=== PATIENT | male | born 1990 | race Caucasian/White ===

== ENCOUNTER 2023-10-20 15:43 | Emergency (ER) | payer OTHER, SELFPAY ==
--- NOTE | ~2023-10-20 | CT_ITS ---
EXAMINATION: CT lumbar spine wo con DATE: 10/20/2023 16:44 INDICATION: back pain . TECHNIQUE: Computed tomography (CT) of the lumbar spine was performed without intravenous contrast. A utomated exposure control and iterative reconstruction technique were employed. The dose-length produ ct was 197.28 mGy-cm. COMPARISON: CT abdomen pelvis 01/30/2013, report only. FINDINGS: 5 nonrib-bearing lumbar-type vertebral bodies. Pedicles intact. Normal vertebral body align ment. Vertebral body heights preserved. Multilevel mild degenerative disc disease. Limbus vertebral b wade at L3. Mild anterior wedge deformity at the thoracolumbar junction, likely physiologic Normal fac ets and posterior elements. IMPRESSION: No acute fracture or traumatic malalignment in the lumbar spine. Reviewed, dictated and finalized at location K.
[2023-10-20 15:46] VITALS: BP 132/84; PULSE 70; RESP 14; TEMP 36.7; O2SAT 100
--- NOTE | 2023-10-20 16:26 | ED.GENADULT ---
HPI - General Adult General Chief complaint: Back Pain/Injury <Danita Rice October, Last Filed: 10/20/23 16:31> Stated complaint: back pain, fell 1 month ago down 10 steps <Danita Rice October, Last Filed: 10/20/23 16:31> Time Seen by Provider: 10/20/23 16:26 <Danita Rice October, - Last Filed: 10/20/23 16:31> Focused HPI: Adrian Oliver charmaine 33 y/o male who presents with reports of having chronic back pain that started years ago, that started without an injury and has not been evaluated for his back pain before. He states that he fell twice today and could not get up because the pain to his mid lower back was so severe he states that when he stood up he felt increased stabbing back pain. denies numbness /tingling to his legs denies loss of bowel or bladder GENERAL: Well-appearing, well-nourished, and in no acute distress. HEAD: Normocephalic, atraumatic. CHEST: Clear to auscultation. ?No respiratory distress. HEART: Regular rate and rhythm.? NEURO: ?Alert and oriented x3. Patient screened in triage and initial orders placed.? ?Additional care and disposition to be based upon?diagnostic testing and treatment. <Danita Rice October, Last Filed: 10/20/23 16:31> Related Data Allergies/adverse reactions: Allergies Allergy/AdvReac Type Severity Reaction Status Date / Time No Known Allergies Allergy Verified 10/20/23 15:45 <Danita Rice October, - Last Filed: 10/20/23 16:31> Review of Systems Review of Systems: CONSTITUTIONAL: Denies fever SKIN: Denies rash MUSCULOSKELETAL: Reports back pain, joint pain, and myalgia. NEUROLOGIC: Denies numbness, or weakness. <Christina Call PA-C - Last Filed: 10/20/23 17:30> All systems reviewed & are unremarkable except as noted in HPI and below <Christina Call PA-C - Last Filed: 10/20/23 17:30> PMFSH Past Medical History Medical History: Medical History (Updated 10/20/23 @ 17:29 by Christina Call PA-C) No active medical problems <Danita Levin SCHOOL PHOTOGRAPHER - Last Filed: 10/20/23 16:31> Social History Social History: Social History (Updated 10/20/23 @ 17:29 by Christina Call PA-C) Smoking status: Current every day smoker Substance use: current Substance use type: marijuana <Danita Levin SCHOOL PHOTOGRAPHER - Last Filed: 10/20/23 16:31> Exam Narrative: GENERAL: Well-appearing, well-nourished, and in no acute distress. HEAD: Normocephalic, atraumatic. EYES: EOMI. CHEST: Clear to auscultation. No respiratory distress. No wheezes rales or rhonchi HEART: Regular rate and rhythm. No murmur heard. Normal peripheral pulses. BACK: No midline spinal tenderness EXTREMITIES: Normal range of motion. No edema. Strength equal in bilateral lower extremities (5/5) SKIN: Warm, dry, no rash. NEURO: No focal deficits. Alert and oriented x3. Normal gait PSYCH: Normal mood and affect <Christina Call PA-C - Last Filed: 10/20/23 17:30> Course Course Emergency Course: Patient updated on his workup and agrees with plan of care <Christina Call PA-C - Last Filed: 10/20/23 17:30> Vital Signs Vital signs: Vital Signs Temperature 98.0 F 10/20/23 15:46 Pulse Rate 70 10/20/23 15:46 Respiratory Rate 14 10/20/23 15:46 Blood Pressure 132/84 10/20/23 15:46 Pulse Oximetry 100 10/20/23 15:46 Oxygen Delivery Room Air 10/20/23 15:46 Temperature 98.0 F 10/20/23 15:46 Pulse Rate 70 10/20/23 15:46 Respiratory Rate 14 10/20/23 15:46 Blood Pressure 132/84 10/20/23 15:46 Pulse Oximetry 100 10/20/23 15:46 Oxygen Delivery Room Air 10/20/23 15:46 <Danita Levin, SCHOOL PHOTOGRAPHER - Last Filed: 10/20/23 16:31> Vital Signs Temperature 98.0 F 10/20/23 15:46 Pulse Rate 70 10/20/23 15:46 Respiratory Rate 14 10/20/23 15:46 Blood Pressure 132/84 10/20/23 15:46 Pulse Oximetry 100 10/20/23 15:46 Oxygen Delivery Room Air 10/20/23 15:46 Temperature 98.0 F 10/20/23 15:46 Pulse Rate 70 10/19/
--- NOTE | 2023-10-20 17:22 | ED.BACK ---
HPI - Back Pain/Injury General Chief Complaint: Back Pain/Injury Stated Complaint: back pain, fell 1 month ago down 10 steps Time Seen by Provider: 10/20/23 16:26 Related Data Allergies Allergy/AdvReac Type Severity Reaction Status Date / Time No Known Allergies Allergy Verified 10/20/23 15:45 Course Vital Signs Vital signs: Vital Signs Temperature 98.0 F 10/20/23 15:46 Pulse Rate 70 10/20/23 15:46 Respiratory Rate 14 10/20/23 15:46 Blood Pressure 132/84 10/20/23 15:46 Pulse Oximetry 100 10/20/23 15:46 Oxygen Delivery Room Air 10/20/23 15:46 Temperature 98.0 F 10/20/23 15:46 Pulse Rate 70 10/20/23 15:46 Respiratory Rate 14 10/20/23 15:46 Blood Pressure 132/84 10/20/23 15:46 Pulse Oximetry 100 10/20/23 15:46 Oxygen Delivery Room Air 10/20/23 15:46 Discharge Plan Discharge Clinical Impression: Degenerative disc disease Qualifiers: Spinal region: lumbar Qualified Code(s): M51.36 - Other intervertebral disc degeneration, lumbar region Patient Disposition: Home, Self-Care Condition: Stable Instructions: Back Pain (ED) Additional Instructions: Return to the ER if you experience fever, weakness, numbness, bowel/bladder incontinence, or any other symptoms that are concerning to you Rest, use ice/heat, take anti-inflammatories (Aleve, Ibuprofen, Naproxen, etc) or Tylenol as needed for pain as well as muscle relaxer (Flexeril) as needed for pain. Muscle relaxers can make you drowsy, do not drive if you take this Follow up with primary care doctor Prescriptions: New cyclobenzaprine 10 mg tablet 10 mg PO TID PRN (Reason: muscle spasm) Qty: 14 0RF Follow-up/Referrals: Inocencio Norwood MD [Physician] - UNKNOWN,DOCTOR [Primary Care Provider] -
[2023-10-20] MEDS: ACETAMINOPHEN 500 MG TABLET 1000 MG PO (17:26)
[2023-10-20] MEDS: NAPROXEN 500 MG TABLET PO (17:26)
[2023-10-20] MEDS: CYCLOBENZAPRINE HCL 10 MG TABLET PO (17:26)
== END 2023-10-20 18:25 | disposition home or self-care (01) ==
LOC: ANHED 17:30
PROVIDERS: Emergency Provider Physician Assistant
DX: M51.36 Other intervertebral disc degeneration, lumbar region (principal)
CPT/HCPCS: 72131; 99284; A9270